=== PATIENT | female | born 1990 | race Caucasian/White ===

== ENCOUNTER 2017-08-04 10:01 | Inpatient (IN) | payer BC ==
[2017-08-04] MEDS ORDERED: Methylergonovine 0.2 MG/1 ML Amp IM PRN (12:52)
[2017-08-04] MEDS ORDERED: Lidocaine 1% 30 ML SDV INJECT PRN (12:52)
[2017-08-04] MEDS ORDERED: Tranexamic Acid 1,000 MG in Sodium Chloride 0.9% 100 ML IV PRN (12:52)
[2017-08-04] MEDS ORDERED: Ondansetron 4 MG/2 ML SDV IV PRN (12:52)
[2017-08-04] MEDS ORDERED: Lactated Ringers 500 ML IV ONE (12:52)
[2017-08-04] MEDS ORDERED: Carboprost Tromethamine 250 MCG/1 ML Amp IM PRN (12:52)
[2017-08-04] MEDS ORDERED: Misoprostol 400 MCG (4 X 100 MCG TAB) RECTAL PRN (12:52)
[2017-08-04] MEDS ORDERED: Sodium Chloride 0.9% 10 ML Syringe FLUSH PRN (12:52)
[2017-08-04] MEDS ORDERED: EPINEPHrine 1 MG/ML SDV ONE (13:15)
[2017-08-04] MEDS ORDERED: fentaNYL 100 MCG/2 ML SDV ONE (13:15)
[2017-08-04] MEDS: Lactated Ringers 1,000 ML IV SCH ×2 (14:11→18:12)
--- NOTE | 2017-08-04 15:03 | PCM.PRNOTE ---
- Free Text/Narrative Note: Requested to provide analgesia to full term patient in severe pain. Upon entering the room, patient is supine in bed complaining of severe abdominal pain and discomfort. Procedure was discussed with patient including adverse outcomes and expectations. Pt consented to analgesia, SAB/IT. Pt placed into a sitting position. Landmarks for SAB/IT were identified and marked. Back was prepped with betadine x3. A sterile, transparent, fenestrated drape was applied. Excess betadine was removed. Using 3 mL of a 1% lidocaine solution, a skin wheel was placed at the L3/L4 interspace. A 24 ga (4 inch) Pencan spinal needle was inserted until positive for CSF. Negative for heme or paresthesias. Injected fentanyl 20 mcg, sufentanil 10 mcg, and 12 mg of a 0.75% bupivacaine solution with an epi wash. Pt was placed left lateral position for approximately 20 minutes. There were zero complications or adverse outcomes. Will continue to monitor.
[2017-08-04] MEDS ORDERED: Oxytocin/Normal Saline 30 UNIT/500 ML BAG IV SCH (15:15)
--- NOTE | 2017-08-04 15:16 | HP ---
THIS DICTATION INTERRUPTED BY DELIVERY OF BABY MACKENZIE. SEE LATER ADMISSION HISTORY AND PHYSICAL REASON FOR ADMISSION: Advanced cervical dilation at 38 weeks. HISTORY OF PRESENT ILLNESS: This is a 27-year-old 2, para 1-0-0-1, who presented to clinic at 38 weeks 0 days gestation with known dilation of 7 cm. She had her membranes stripped in the clinic this morning for bag ruptured in the process of membrane stripping. The patient was admitted to the hospital. The patient has been compliant with visits to clinic. Dating is based on a definite last menstrual period of 11/11/2016, which consisted of ultrasound done on 03/22/2017. Blood type is AB positive, and antibody screen negative. Hemoglobin on admission is 9.7, platelet counts of 173, and second trimester hemoglobin was 11.4 with platelets of 218. Rubella immune. DICTATION ENDS HERE -- SEE SECOND ADMISSION HISTORY AND PHYSICAL. [facility] /[id number] SAM
--- NOTE | 2017-08-04 15:25 | DEL ---
DATE: 08/04/2017 PREPROCEDURE DIAGNOSES: 1. 38 and 0/7 weeks gestation based on last menstrual period, in agreement with 18w6d gestation ultrasound. 2. 2, para 1-0-0-1. 3. Advanced cervical dilation with artificial rupture of membranes. 4. History of Janny thyroiditis. 5. Anemia in . 6. Blood type AB positive, rubella immune. Group B strep negative. POSTOPERATIVE DIAGNOSES: 1. A 38 week 0 day gestation based on exact last menstrual period and 18w6d gestational ultrasound. 2. 2, now para 2-0-0-2. 3. Blood type AB positive, rubella immune. Group B strep negative. 4. Anemia of . 5. History of Janny thyroiditis 6. Delivery of viable female infant over intact perineum. BRIEF HISTORY: A 27-year-old female with the above-listed diagnoses, presented this morning to the hospital after a clinic appointment to strip membranes. The patient was 6 to 7 cm dilated in clinic. On admission, was found to be 7 cm dilated. The patient was not interested in labor augmentation by Pitocin. Artificial rupture of membranes occurred at 1315 hours, produced clear amniotic fluid. The patient had an intrathecal placed at 1328 hours; was 10 cm dilated and 100% effaced at [address] Lavonne Richards was called for delivery. PROCEDURE IN DETAIL: With the patient in dorsal lithotomy position, she delivered a viable female over an intact perineum. Labor was assisted by a low-profile vacuum placed on the scalp, and with 1 push, was delivered. Maternal grandmother cut the cord. Cord blood sample was obtained. The was dried and stimulated, mouth and nose were bulb suctioned. Baby was brought to warmer to be cleaned and weighed. Placenta delivered via gentle cord traction and uterine massage, inspected and found to be intact. Labia and vagina were inspected, no lacerations requiring repair, small abrasion on the left posterior vaginal wall. Uterus was firm after placenta was delivered. Infant was cleaned and placed on mother's chest. The patient tolerated the procedure well. ESTIMATED BLOOD LOSS: 200 mL. COMPLICATIONS: None. FINDINGS: Viable female , scores of 8 and 8, weight of 8 pounds 6 ounces. Length 19 inches DISPOSITION: Mother and baby in the room at this time, doing well. Family will be joining them shortly. Adela Rogres MS3 dictating for Dr. Lavonne Miranda. [facility] /[id number] MTDD
--- NOTE | 2017-08-04 15:49 | HP ---
REASON FOR ADMISSION: Advanced cervical dilation at 38 weeks. HISTORY OF PRESENT ILLNESS: A 27-year-old, 2, para 1-0-0-1, presented at 38 and 0/7 weeks' gestation with advanced cervical dilation of 6 to 7 cm. The patient had been seen earlier this week in the clinic for discussion of options for induction of labor versus membrane stripping in clinic. The patient was seen in clinic this morning and had membranes stripped in clinic. The patient started care at 9 weeks' gestation and has been compliant with her visits. Gestational dating is based on definite last menstrual period which was consistent with an ultrasound done at 18 weeks 6 days' gestation. Blood type AB positive, antibody screen is negative. Second trimester hemoglobin of 11.4, platelets of 218. Hemoglobin on admission of 9.7 and platelets of 173. Rubella immune. RPR is nonreactive. Urine culture with no growth. Hepatitis B antigen is nonreactive. Group B strep negative. HIV negative. TSH low at 0.32, consistent with patient's history of Janny thyroiditis. One hour sugar glucose of 96. Quad screen within normal limits. PAST OBSTETRICAL HISTORY: One prior at 38 weeks 3 days' gestation of 3620 g female; this had a 3-1/2 hours 2nd stage of labor. Delivering clinician was Dr. Barron. PAST MEDICAL HISTORY: Janny thyroiditis, managed by Dr. Noble; TSH has been monitored throughout . The patient is a former smoker, quit in 2011. The patient has vitamin D deficiency, treated in 2014 with 8 weeks of vitamin D supplementation. Janny thyroiditis, diagnosed in 2015, following with Dr. Noble. MEDICATIONS: 1. Levothyroxine (Synthroid) 100 mcg tablets. 2. vitamins. 3. iron. FAMILY HISTORY: Positive for heart disease in maternal grandparents and paternal grandfather. Family history positive for heart disease, diabetes, hypertension, thyroid disease in paternal aunt. SOCIAL HISTORY: The patient lives in [place] with her male partner, Rivera Wilde. They have been together for more than 3 years. They have 1 daughter together. This is their 2nd child together. She works at [employer]. REVIEW OF SYSTEMS: Up-to-date for Tdap during this . Did not receive flu shot. She plans on breast feeding. History of chickenpox. System review is unremarkable. She has no visual changes or headaches. No nausea or vomiting. No significant edema. Baby has been active. She has had no bleeding or fluid leakage. PHYSICAL EXAMINATION: General: The patient looks well, in no acute distress. Vital Signs: On admission, blood pressure of 134/72, respiratory rate of 16, temperature of 98.2, pulse of 92. Height is 5 feet 9.5 inches, weight 223 pounds. HEENT: Negative. Lungs: Clear in anterior and posterior greene. Heart: Regular rate and rhythm. No murmur. Abdomen: Gravid. Pelvic: Cervix is 7 cm dilated and thin. Bag of water is intact. Vertex is presenting and ballotable. No vaginal fluid leakage or bleeding noted. Extremities: She has trace edema. LABORATORY DATA: White blood cells within normal limit of 12.3, hemoglobin of 9.7, platelets of 173. IMPRESSION AND PLAN: 1. A 27-year-old female, 2, para 1-0-0-1, at 38 and 0/7 weeks' gestation. Candidate for artificial rupture of membranes due to advanced cervical dilation of 7 cm with history of delivering at 38 weeks. 2. AB positive blood type. 3. Rubella immune. 4. Group B streptococcus negative. 5. Mild anemia of . 6. Nonstress test reactive. The patient is to be admitted with routine orders. The patient is not interested in having Pitocin to augment labor. The patient is interested in having intrathecal for pain management. Anticipate vaginal delivery for her. Further management pending her course in labor. Adela Rogers MS3 dictating for Dr. Lavonne Richards. [facility] /[id number] [facility]
[2017-08-04] MEDS: Acetaminophen 325 MG Tab PO PRN (21:18)
[2017-08-04] MEDS ORDERED: Zolpidem 5 MG Tab PO PRN (21:24)
[2017-08-04] MEDS ORDERED: Benzocaine/Menthol 20%-0.5% Spray 56 GM Canister TOP PRN (21:24)
[2017-08-04] MEDS ORDERED: Simethicone 80 MG Tab.Chew PO PRN (21:24)
[2017-08-04] MEDS: Docusate Sodium 100 MG Cap PO PRN (21:57)
[2017-08-04] MEDS: Ibuprofen 800 MG Tab PO PRN (21:57)
[2017-08-05] MEDS: Ibuprofen 800 MG Tab PO PRN (07:29)
[2017-08-05] MEDS: Docusate Sodium 100 MG Cap PO PRN (07:30)
[2017-08-05] MEDS: Prenatal Multivitamin with Calcium/Folic Acid/Iron Tab PO SCH ×2 (07:30→10:17)
--- NOTE | 2017-08-05 13:50 | DISCH ---
DATE OF SERVICE: 08/05/2017 ADMITTING DIAGNOSES: 1. A 38 and 0/7 weeks gestation based on last menstrual period, confirmed by 18 6/7 week ultrasound. 2. 2, para 1-0-0-1. 3. Advanced cervical dilation. 4. History of thyroid disease, treated with levothyroxine. 5. Anemia in . 6. Blood type AB positive, rubella immune. Group B strep negative. POSTOPERATIVE DIAGNOSES: 1. A 38 week 0 day gestation based on last menstrual period in agreement with 18 week 6 day ultrasound. 2. 2, now para 2-0-0-2. 3. Advanced cervical dilation with artificial rupture of membranes. 4. History of thyroid disease, treated with levothyroxine. 5. Anemia in . 6. Blood type AB positive, rubella immune. Group B strep negative. 7. Delivery of viable female infant over intact perineum. BRIEF HISTORY: A 27-year-old female presented to the hospital after clinic appointment to strip cervical membranes. Artificial rupture of membranes produce clear amniotic fluid. The patient had intrathecal at 8cm dilation, was completely dilated shortly after. Second stage of labor for 30 minutes. See delivery note for full details. HOSPITAL COURSE: The patient's labor was not augmented by Pitocin. She had a vaginal delivery that was assisted with vacuum suction. Vacuum was applied and used during 1 push, delivering a 8 pound 6 oz viable female infant on August 04 at 1410 hours. Baby APGARs of 8 and 8. There are no vaginal lacerations requiring sutures. Since delivery, the patient has been ambulating, tolerating a regular diet. She has had normal urine output and is passing gas. The patient is not had a bowel movement, but is taking stool softeners and passing gas. The patient has showered and is interested in going home today after the 's blood work is done. I feel baby is able to go home with mom without any complications. DISCHARGE CONDITION: Good. PHYSICAL EXAMINATION: Vital Signs: Temperature 98.4 Fahrenheit, pulse 84, blood pressure 118/74, respirations of 16, oxygen saturation 99% on room air. Heart: Regular without murmur. S1 and S2. Regular rate and rhythm. Lungs: Clear to auscultation bilaterally. Abdomen: Soft, nontender. Fundus is firm at 1 finger below the umbilicus. Lochia is described as normal average amount after delivery. Extremities: No edema, erythema, or tenderness noted. LABORATORY: Admission hemoglobin of 9.7, discharge hemoglobin 9.3. Platelets on admission 173, platelets on discharge 76. White blood cell count of 12.3 on admission, white blood cell count of 11 discharge. DISPOSITION: Home with family. MEDICATIONS: 1. Ibuprofen 600 mg every 6 hours as needed for pain. 2. Tylenol 650 mg every 6 hours as needed for pain. 3. Iron 325 mg twice daily for anemia. 4. Colace 100 mg twice daily as needed for constipation. 5. Levothyroxine 100 mg daily. DISCHARGE INSTRUCTIONS: As patient is interested in being discharged 24 hours after delivery, we discussed the risks of going home prior to 48 hours of life when heart conditions are most audible. Mother expressed her understanding and desire to go home with baby today. today. She will have a followup with Dr. Lavonne Richards on August 09 at 10 :30am. She should not lift anything over 25 pounds, and needs to be on pelvic rest for 6 weeks. Mother needs to make appointment with Dr. Lavonne Richards in 6 weeks for a physical. At that 6-week appointment, mother's thyroid levels and TSH dose will be addressed if there needs to be any changes. Routine vaginal delivery instructions were provided and her questions were answered. [facility] /[id number] Adela Rogers MS3 dictating for Dr. Richards Agree with evaluation and treatment plan as outlined above. Lavonne Richards MD [facility]PITALFrancoise
[2017-08-05] MEDS: Acetaminophen 325 MG Tab PO PRN (14:53)
[2017-08-05] MEDS ORDERED: EPINEPHrine 1 MG/ML SDV IV ONE (15:46)
[2017-08-05] MEDS ORDERED: fentaNYL 100 MCG/2 ML SDV ITHECAL ONE (15:46)
== END 2017-08-05 15:50 | disposition home or self-care (01) | DRG 560 ==
LOC: DL.OBCHECK 10:01 → DL.OB 10:05 → OBSVTOIN 14:10
PROVIDERS: ADMIT Family Medicine; ATTEND Family Medicine
PROC: 10D07Z6 Extraction of Products of Conception, Vacuum, Via Natural or Artificial Opening (ICD-10-PCS; principal; 2017-08-04)
PROC: 10907ZC Drainage of Amniotic Fluid, Therapeutic from Products of Conception, Via Natural or Artificial Opening (ICD-10-PCS; 2017-08-04)
PROC: 00HU33Z Insertion of Infusion Device into Spinal Canal, Percutaneous Approach (ICD-10-PCS; 2017-08-04)
PROC: 3E0R3BZ Introduction of Anesthetic Agent into Spinal Canal, Percutaneous Approach (ICD-10-PCS; 2017-08-04)
DX: O99.284 Endocrine, nutritional and metabolic diseases complicating childbirth (principal); E06.3 Autoimmune thyroiditis; Z3A.38 38 weeks gestation of pregnancy; Z37.0 Single live birth; Z87.891 Personal history of nicotine dependence; Z79.899 Other long term (current) drug therapy
CPT/HCPCS: 36415; 59409; 85027; A9270-GY; J0171; J2590; J3010; J7120